=== PATIENT | male | born 1965 | race Caucasian/White ===

== ENCOUNTER 2017-08-30 17:27 | Emergency (ER) | payer BC ==
--- NOTE | 2017-08-30 18:03 | ED ---
Recheck HPI - General Chief Complaint: Recheck/Abnormal Lab/Rx Stated Complaint: Hypertensive Time Seen by Provider: 08/30/17 17:48 Source: patient Mode of arrival: ambulatory Limitations: no limitations - History of Present Illness Initial Comments: Patient presents or high blood pressure. Patient states blood pressure was 180 systolic when he decided to check it while he was at [facility]. Patient states he was asymptomatic with since he was there he decided to check it. Patient states symptoms elevated he took 2 extra doses of his Cozaar 100 mg. Patient only takes Cozaar 100 mg, a diuretic pill, and a third pill he doesn't remember in the morning for blood pressure. Patient is currently asymptomatic, states she is just concerned that his blood pressure was high. Patient denies chest pain, shortness breath, numbness, weakness, confusion, speech problems, vision changes. Patient does admit to drinking regularly and history of elevated liver enzymes, patient states he'll drink a few beers every night to help him sleep. - Related Data Home Medications Medication Instructions Recorded Confirmed Hydrochlorothiazide(Unknown) 1 tab PO DAILY 08/30/17 08/30/17 Losartan Potassium [Cozaar] 100 mg PO DAILY 08/30/17 08/30/17 Unknown Bp Med 08/30/17 Allergies Allergy/AdvReac Type Severity Reaction Status Date / Time No Known Allergies Allergy Verified 08/30/17 17:49 Review of Systems ROS Statement: Those systems with pertinent positive or pertinent negative responses have been documented in the HPI. ROS Other: All systems not noted in ROS Statement are negative. Constitutional: Denies: fever, chills, weakness Eyes: Denies: vision change ENT: Denies: ear pain, congestion Respiratory: Denies: cough, dyspnea Cardiovascular: Denies: chest pain, palpitations, dyspnea on exertion, syncope Endocrine: Denies: fatigue Gastrointestinal: Denies: abdominal pain, nausea, vomiting Genitourinary: Denies: frequency, hematuria Musculoskeletal: Denies: back pain Skin: Denies: rash, change in color Neurological: Denies: headache, weakness, numbness, paresthesias, confusion Past Medical History Past Medical History: Hypertension History of Any Multi-Drug Resistant Organisms: None Reported Past Surgical History: Orthopedic Surgery Smoking Status: Never smoker Past Alcohol Use History: Daily Past Drug Use History: None Reported General Exam - General Exam Comments Initial Comments: Sitting up in chair in room. No acute distress. Conversing normally. Calm, pleasant, smiling, making jokes. Well groomed, well dressed. Limitations: no limitations General appearance: alert, in no apparent distress Head exam: Present: atraumatic, normocephalic Eye exam: Present: normal appearance, PERRL, EOMI. Absent: scleral icterus, conjunctival injection (Pupils equal and reactive bilaterally. Eye movements intact bilaterally.) ENT exam: Present: mucous membranes moist Neck exam: Present: normal inspection Respiratory exam: Present: normal lung sounds bilaterally. Absent: respiratory distress, wheezes, rales Cardiovascular Exam: Present: regular rate, normal rhythm, normal heart sounds. Absent: irregular rhythm, systolic murmur, diastolic murmur GI/Abdominal exam: Present: soft. Absent: distended, tenderness, guarding, rebound, rigid Extremities exam: Present: other (No gross deformities. Full range of motion all extremities.) Neurological exam: Present: alert, oriented X3, CN II-XII intact, normal gait, other (Cranial nerves II through XII intact. Speech clear. Comprehension intact. Muscle strength 5 out of 5 in all extremities. Pronator drift negative bilaterally. Finger to nose coordinated bilaterally. Sensation intact in all extremities). Absent: motor sensory deficit Psychiatric exam: Present: normal affect, normal mood Skin exam: Present: warm, dry, intact, normal color. Absent: rash, diaphoretic Course Vital Signs 08/30/17 17:32 Temperature 98.8 F Pulse Rate 102 H Respiratory 18 Rate Blood Pressure 163/83 O2 Sat by Pulse 99 Oximetry Medical Decision Making - Medical Decision Making BP 163/83 on arrival. Patient asymptomatic. No focal neuro deficits on exam. Assessment patient regarding symptoms. Given asymptomatic hypertension will not treat further at this time. Patient instructed not to take extra doses of blood pressure sure medication at home unless okayed by physician. Patient was educated on signs and symptoms of heart attack and stroke. Instructed to return to ER immediately if patient develops any symptoms. Instructed patient to follow up with primary care physician tomorrow for blood pressure reevaluation and possible dosing adjustment of blood pressure medications. Discuss alcohol cessation with patient. Agrees to talk with primary care physician regarding possible Librium taper, possible sleep aids, as patient has been using alcohol as a sleep aid. Patient educated on risks of long-term alcohol abuse. Patient both feel comfortable being discharged home at this time. They're very happy with her care. All questions answered. Disposition Clinical Impression: HTN (hypertension) Disposition: HOME SELF-CARE Condition: Good Instructions: Chronic Hypertension (ED) Additional Instructions: Return to ER immediately if symptoms arise including numbness, weakness, confusion, vision problems, headache, chest pain, shortness of breath. Follow- up with your primary care doctor tomorrow for blood pressure recheck. Referrals: None,Stated [Primary Care Provider] - 1-2 days
[2017-08-30 18:41] VITALS: BP 161/94; PULSE 84; RESP 17; TEMP 98.2
== END 2017-08-30 18:43 | disposition home or self-care (01) ==
LOC: EC 17:27
DX: I10 Essential (primary) hypertension (principal); Z79.899 Other long term (current) drug therapy
CPT/HCPCS: 99282

== ENCOUNTER → 2018-05-11 | Outpatient (CLI) | payer BC ==
--- NOTE | 2018-05-11 10:11 | CT ---
EXAMINATION TYPE: CT sinus wo con DATE OF EXAM: 05/11/2018 COMPARISON: NONE HISTORY: Chronic sinusitis per order. Headaches and facial pain for [address] DLP: 588 mGycm. Automated Exposure Control for Dose Reduction was Utilized. TECHNIQUE: CT scan of the sinuses is performed without contrast, axial images are obtained, coronal r eformatted images are also reviewed. FINDINGS: There is mild to moderate mucosal thickening involving inferior aspect of both maxillary si nuses. There is mild curvilinear mucosal thickening posterior left sphenoid sinus axial image 30. No suspicious opacification or air-fluid levels is seen. The ostiomeatal complex is patent bilaterally o n the coronal images. Nasal septum is noted deviated to left of midline. Visualized portion of mastoid air cells show no abnormal opacification. The globes are intact bilate rally. Visualized portion of brain parenchyma shows age-related atrophy. There is incidental left fr ontal 1.4 cm curvilinear skin base lesion presumed dermatologic and benign in etiology axial image 62 , correlate clinically. IMPRESSION: Chronic maxillary sinus disease. No acute sinusitis.
== END | disposition home or self-care (01) ==
LOC: RADCTMAIN 08:29
PROVIDERS: ATTEND Otolaryngology
DX: J32.0 Chronic maxillary sinusitis (principal)
CPT/HCPCS: 70486

== ENCOUNTER 2018-07-01 06:13 | Day surgery (SDC) | payer BC ==
[2018-06-28 16:19] VITALS: BMI 30.1
[~2018-07-01 06:13] MED LIST: DEXAMETHASONE SOD PHOSPHATE 4 MG/ML 1 ML VIAL IV ONE; FAMOTIDINE 20 MG/2 ML VIAL IV ONE; ONDANSETRON 4 MG/2 ML VIAL IVP ONE; ceFAZolin 1,000 MG in DEXTROSE/WATER 1 50ML.BAG IV ONE
[2018-07-01] MEDS ORDERED: LIDOCAINE 1% 20 ML VIAL (10MG/ML) FOR IV START INTRADERMA PRN (06:20)
[2018-07-01] MEDS ORDERED: DEXAMETHASONE SOD PHOSPHATE 10 MG/ML 1 ML VIAL IV ONE (06:20)
[2018-07-01] MEDS ORDERED: SCOPOLAMINE 1.5MG/72HR PATCH TRANSDERM ONE (06:20)
[2018-07-01] MEDS ORDERED: HYDROmorphone 0.5 MG/0.5 ML SYRINGE IVP PRN (06:20)
[2018-07-01] MEDS ORDERED: ONDANSETRON 4 MG/2 ML VIAL IVP ONE (06:20)
[2018-07-01] MEDS: OXYMETAZOLINE 0.05% NASL SPRAY 1 SPRAY BOTTLE NASAL ONE ×5 (06:39→06:59)
[2018-07-01] MEDS: LACTATED RINGERS 1,000 ML IV SCH ×2 (06:39→07:40)
[2018-07-01] MEDS ORDERED: MIDAZOLAM 2 MG/2 ML VIAL IVP ONE (07:01)
[2018-07-01] MEDS ORDERED: SUCCINYLCHOLINE CHLORIDE 100 MG/5 ML SYR IV ONE (07:42)
[2018-07-01] MEDS ORDERED: DEXAMETHASONE SOD PHOS (MDV) 100 MG/10 ML VIAL ONE (07:42)
[2018-07-01] MEDS ORDERED: PROPOFOL 10 MG/ML 20 ML VIAL IV ONE (07:42)
[2018-07-01] MEDS ORDERED: LIDOCAINE 1% INJ 10MG/ML (20 ML MDV) ONE (07:42)
[2018-07-01] MEDS ORDERED: ePHEDrine SULFATE/0.9% NACL/PF 50 MG/5 ML SYRINGE IV ONE (07:42)
[2018-07-01] MEDS ORDERED: MIDAZOLAM 2 MG/2 ML VIAL ONE (07:42)
[2018-07-01] MEDS ORDERED: fentaNYL (PF) 50 MCG/ML 2 ML AMP ONE (07:42)
[2018-07-01] MEDS ORDERED: BUPIVACAIN-EPI 0.5%-1:200,000 30 ML VIAL SQ ONE (07:46)
[2018-07-01] MEDS ORDERED: LIDOCAINE 1%-EPI 1:100,000 20 ML VIAL SQ ONE (07:46)
[2018-07-01] MEDS ORDERED: EPINEPHrine 1 MG/ML (MDV) 30 ML VIAL TOPICAL ONE (07:47)
[2018-07-01] MEDS ORDERED: BACITRACIN 500 UNIT/GM OINT 28.4 GM TUBE TOPICAL ONE (07:47)
[2018-07-01] MEDS ORDERED: FLUORESCEIN STRIPS 1 MG STRIP MISCELLANE ONE (07:47)
[2018-07-01 09:24] VITALS: TEMP 97.5
--- NOTE | 2018-07-01 09:35 | P.OP ---
Date of Procedure: 07/01/18 Preoperative Diagnosis: Chronic sinusitis Deviated nasal septum to the left severe Intranasal polyps Sinonasal polyps Bilateral hypertrophy of the inferior nasal turbinates with obstruction Postoperative Diagnosis: Same Procedure(s) Performed: Bilateral functional endoscopic sinus surgery Septoplasty Polypectomy Bilateral submucosal resection of the inferior turbinates with outfracturing compression Anesthesia: CHUCHO Surgeon: Evan Graham Estimated Blood Loss (ml): 10 Pathology: other (sinonasal) Condition: stable Disposition: PACU Indications for Procedure: This patient presented to the office with long-standing issues with chronic sinusitis. CAT scan evaluation shows chronic sinusitis of the maxillary ethmoid and sphenoid sinuses with intranasal polyposis severe deviated septum and large obstructive inferior turbinates. He's failed medical therapy with long-term antibiotic therapy cortisone nasal sprays etc. In light of the obstructive polyps deviated septum etc. we have decided to proceed forward with surgery. All risks, benefits, and alternative therapies were discussed. Consent was obtained and all questions were answered. Operative Findings: Patient had a severe left septal deviation with large obstructive inferior turbinates and intranasal polyps. There was diseased tissue and polypoid disease throughout the maxillary ethmoid and sphenoid sinuses. Description of Procedure: This patient was taken to the operative room and placed in the supine position. A general inhalation anesthetic was administered to the patient by the department of anesthesia with a functioning IV line in place. The patient was monitored throughout the entire case by the department of anesthesia. The eyes were taped shut for protection. The patient was placed in a slight reverse Trendelenburg position. The patient had previously utilize Afrin nasal spray preoperatively. The nose was evaluated and the septum lateral nasal wall and inferior turbinates were injected with lidocaine 1% with epinephrine 1 100,000 bilaterally. Approximately 10 minutes were allowed wait for full vasoconstrictive effects to take place. At this point a caudal incision was made over the caudal portion of the left septum down to the mucoperichondrium. A mucoperichondrial flap was elevated on the left side and dissection was carried with use of tunnels posteriorly. We then made a crossover incision through the cartilage to the contralateral side and for the mucoperichondrial flap development was performed to the extent of visualization on the contralateral side. After the cartilage was freed with use of several crosshatching incisions and removal of some redundant strips of septal cartilage, the septum was straightened and placed back in the midline. The septum was sutured fixated to the ovarian groove. Excellent straightening occurred and the septum was visibly straight. Incision was closed with a 40 rapid Vicryl. We utilized a running nonlocking fashion for closure of the incision. A quilting stitch was used to reapproximate the septal flaps with use of a 40 rapid Vicryl. We then entered the nose with a 0 and 30 Jacobsen beatrice endoscope. Previous to this we did inject the lateral nasal wall and middle turbinate and uncinate process with lidocaine 1% with epinephrine 1 100,000. Approximately 10 minutes were allowed wait for full vasoconstrictive effects to take place. Intranasal polyps were noted. They were noted bilaterally. The intranasal polyps were removed with use of a microdebrider. With use of a microdebrider and a pediatric backbiter, we took down the uncinate process bilaterally. We then opened the maxillary sinuses bilaterally. We utilized a microdebrider for this and entered the maxillary sinuses and removed diseased tissue and polypoid tissue. This was done bilaterally. After the maxillary sinuses were opened and the diseased tissue and polyps were removed we entered the ethmoid bulla and with use of a microdebrider and up-biting chad and Nellyley, we remove the anterior septations and remove diseased tissue from the anterior ethmoids with direct visualization. We then followed the fovea frontalis through the basal lamella and into the posterior ethmoid air cells and did a total ethmoidectomy with removal of polypoid material. Once the ethmoids cells were all taken down we then entered the sphenoid sinus medially and inferiorly underneath the inferior attachment of the superior turbinate. The sphenoid sinus was opened entered and diseased tissue and polyps were removed bilaterally. This was done with a microdebrider and Blakesley. To summarize, the septum was straightened, the maxillary ethmoid and sphenoid sinuses were opened and polypoid disease were removed from the sinuses. Intranasal polyps were also removed. Xerogel was inserted. Nasal pore was inserted and minimal bleeding was encountered. We reinspected the skull base there is no signs of any orbital penetration or signs of any intracranial penetration. The sugical site was reinspected after the nasal pore and xerogel was placed and no bleeding was seen. Attention was then paid to the inferior turbinates. The bilateral inferior turbinates were hypertrophic and obstructive. We entered the anterior portion of the inferior turbinates with use of a microdebrider. We remove bone and submucosal elements with use of a microdebrider bilaterally. The inferior turbinates underwent a submucosal resection with removal of submucosal tissue and bone. We obtained a much better and normal in size for breathing. The inferior turbinates were then outfractured and compressed with a Familink nasal elevator. Excellent airway was obtained and was symmetric bilaterally. No bleeding was encountered. Intranasal splints were inserted and fixated at the end of the case. We utilized Puga nasal splints. There will be removed and the patient returns to the office.
[2018-07-01 09:59] VITALS: RESP 16
[2018-07-01 10:56] VITALS: BP 139/68; PULSE 90
== END 2018-07-01 11:12 | disposition home or self-care (01) ==
LOC: OR 06:13
PROVIDERS: ATTEND Otolaryngology
DX: J32.9 Chronic sinusitis, unspecified (principal); J34.2 Deviated nasal septum; J33.9 Nasal polyp, unspecified; J33.8 Other polyp of sinus; J34.3 Hypertrophy of nasal turbinates; I10 Essential (primary) hypertension; Z79.899 Other long term (current) drug therapy
CPT/HCPCS: 88305; 88300; 30520; 30140; 31267; 31259; J0171; J2250; J1100 ×2; J2405; J2001; J3010; J0690; J0330; J2704

== ENCOUNTER 2022-05-07 15:25 | Emergency (ER) | payer BC ==
[2022-05-07 15:35] VITALS: PULSE 66; RESP 18; TEMP 98
[2022-05-07 16:57] LABS: Basophils % (A) 0 %; Eosinophils # (A) 0.1 k/uL (0-0.7); Eosinophils % (A) 1 %; HCT 40.3 % (39.0-53.0); HGB 14.5 gm/dL (13.0-17.5); Lymphocytes # (A) 0.3 k/uL (1.0-4.8); Lymphocytes % (A) 6 %; MCH 33.5 pg (25.0-35.0); MCV 93.2 fL (80.0-100.0); Monocytes # (A) 0.4 k/uL (0-1.0); Monocytes % (A) 7 %; Neutrophils # (A) 4.2 k/uL (1.3-7.7); Neutrophils % (A) 82 %; RBC 4.32 m/uL (4.30-5.90); RDW 11.8 % (11.5-15.5); WBC 5.2 k/uL (3.8-10.6)
[2022-05-07 17:07] LABS: Albumin 4.6 g/dL (3.5-5.0); Anion Gap 10 mmol/L; Carbon Dioxide 27 mmol/L (22-30); Chloride 90 mmol/L (98-107); Glucose 143 mg/dL (74-99); Potassium 4.5 mmol/L (3.5-5.1); Sodium 127 mmol/L (137-145); Total Protein 7.5 g/dL (6.3-8.2)
[2022-05-07 17:08] LABS: ALT 55 U/L (4-49); AST 60 U/L (17-59); African American GFR (CKD) >90 (>60 ml/min/1.73 sqM); Alkaline Phosphatase 87 U/L (38-126); Blood Urea Nitrogen 11 mg/dL (9-20); Calcium 9.1 mg/dL (8.4-10.2); Non-African American GFR(CKD) >90 (>60 ml/min/1.73 sqM); Total Bilirubin 0.7 mg/dL (0.2-1.3)
--- NOTE | 2022-05-07 17:18 | ED ---
Neuro HPI - General Chief Complaint: Neuro Symptoms/Deficit Stated Complaint: Seizures,PCP sent Time Seen by Provider: 05/07/22 15:35 Source: patient Mode of arrival: ambulatory Limitations: no limitations - History of Present Illness Is the patient presenting with stroke symptoms?: Yes Initial Comments: 56-year-old male past history of hypertension, daily alcohol use who presents emergency Department with concern that he is having seizures. Patient states that he has been having sinus pain. He was on Bactrim and began having side effects from this medication. Reports that he felt like he had influenza when he took it. He called his primary care doctor who switched him to Augmentin. Patient reports that once he started this medication he began having these episodic tremors with visual disturbance. States that they come on every 20 minutes only lasts for a few seconds. They're associated with hot and cold flashes. Patient remains alert during this episodes. is concerned that he is having seizures. She denies any unresponsiveness from him. No head trauma. No history of neurologic disturbance. Patient denies any headaches or fevers. No neck pain or stiffness. No speech difficulties. No history of seizures. No other alleviating, precipitating or modifying factors - Related Data Home Medications: Home Medications Medication Instructions Recorded Confirmed Losartan Potassium 100 mg PO DAILY 06/28/18 05/07/22 amLODIPine [Norvasc] 10 mg PO DAILY 06/28/18 05/07/22 hydroCHLOROthiazide 25 mg PO DAILY 06/28/18 05/07/22 Amoxic-Pot Clav 875-125Mg 1 tab PO BID 05/07/22 05/07/22 [Augmentin 875-125] Cetirizine HCl [Zyrtec] 10 mg PO DAILY 05/07/22 05/07/22 Meclizine [Antivert] 25 mg PO DAILY PRN 05/07/22 05/07/22 Meloxicam [Mobic] 15 mg PO DAILY 05/07/22 05/07/22 Metoprolol Succinate (ER) [Toprol 50 mg PO DAILY 05/07/22 05/07/22 Xl] Minocycline HCl [Minocin] 100 mg PO DAILY 05/07/22 05/07/22 Triamcinolone Acetonide [Nasacort] 1 spray EA NOSTRIL DAILY 05/07/22 05/07/22 Zolpidem [Ambien] 10 mg PO HS PRN 05/07/22 05/07/22 Allergies/Adverse Reactions: Allergies Allergy/AdvReac Type Severity Reaction Status Date / Time No Known Allergies Allergy Verified 05/07/22 16:39 Review of Systems ROS Statement: Those systems with pertinent positive or pertinent negative responses have been documented in the HPI. ROS Other: All systems not noted in ROS Statement are negative. General Exam Limitations: no limitations General appearance: alert, in no apparent distress Head exam: Present: atraumatic, normocephalic, normal inspection Eye exam: Present: normal appearance, PERRL, EOMI. Absent: scleral icterus, conjunctival injection, periorbital swelling ENT exam: Present: normal exam, mucous membranes moist Neck exam: Present: normal inspection. Absent: tenderness, meningismus, lymphadenopathy Respiratory exam: Present: normal lung sounds bilaterally. Absent: respiratory distress, wheezes, rales, rhonchi, stridor Cardiovascular Exam: Present: regular rate, normal rhythm, normal heart sounds. Absent: systolic murmur, diastolic murmur, rubs, gallop, clicks GI/Abdominal exam: Present: soft, normal bowel sounds. Absent: distended, tenderness, guarding, rebound, rigid Extremities exam: Present: normal inspection, full ROM, normal capillary refill. Absent: tenderness, pedal edema, joint swelling, calf tenderness Back exam: Present: normal inspection Neurological exam: Present: alert, oriented X3, CN II-XII intact Psychiatric exam: Present: normal affect, normal mood Skin exam: Present: warm, dry, intact, normal color. Absent: rash Stroke MDM - Lab Data Result diagrams: 05/07/22 16:48 05/07/22 16:48 Lab Results 05/07/22 05/07/22 Range/Units 16:48 16:48 WBC 5.2 (3.8-10.6) k/uL RBC 4.32 (4.30-5.90) m/uL Hgb 14.5 (13.0-17.5) gm/dL Hct 40.3 (39.0-53.0) % MCV 93.2 (80.0-100.0) fL MCH 33.5 (25.0-35.0) pg MCHC 36.0 (31.0-37.0) g/dL RDW 11.8 (11.5-15.5) % Plt Count 94 L (150-450) k/uL MPV 9.0 Neutrophils % 82 % Lymphocytes % 6 % Monocytes % 7 % Eosinophils % 1 % Basophils % 0 % Neutrophils # 4.2 (1.3-7.7) k/uL Lymphocytes # 0.3 L (1.0-4.8) k/uL Monocytes # 0.4 (0-1.0) k/uL Eosinophils # 0.1 (0-0.7) k/uL Basophils # 0.0 (0-0.2) k/uL Manual Slide Review Performed RBC Morphology Normal Sodium 127 L (137-145) mmol/L Potassium 4.5 (3.5-5.1) mmol/L Chloride 90 L (98-107) mmol/L Carbon Dioxide 27 (22-30) mmol/L Anion Gap 10 mmol/L BUN 11 (9-20) mg/dL Creatinine 0.78 (0.66-1.25) mg/dL Est GFR (CKD-EPI)AfAm >90 (>60 ml/min/1.73 sqM) Est GFR (CKD-EPI)NonAf >90 (>60 ml/min/1.73 sqM) Glucose 143 H (74-99) mg/dL Calcium 9.1 (8.4-10.2) mg/dL Total Bilirubin 0.7 (0.2-1.3) mg/dL AST 60 H (17-59) U/L ALT 55 H (4-49) U/L Alkaline Phosphatase 87 (38-126) U/L Total Protein 7.5 (6.3-8.2) g/dL Albumin 4.6 (3.5-5.0) g/dL - Medical Decision Making Arrival patient was placed into room 5. Potassium physical exam was performed. IV access established laboratory studies were conducted. Patient sent for CT of his head. Upon return results they are discussed the patient. He does have a low sodium of 127. He reports that he drinks 2 gallons of water a day as well as several beers. I did recommend admission for hyponatremia however the patient refused. He is instructed to cut down the amount of free water that he is drinking. Decreasing alcohol that he isn't taking. He needs to follow up with his primary care doctor for reevaluation of his hyponatremia. Also r ecommended neurology evaluation with MRI and EEG. Patient was agreeable to this. Instructed to follow up with her primary care doctor return for any new or worsening symptoms. Patient was agreeable and discharge home in stable condition 05/07/22 17:17 EKG demonstrates a sinus rhythm with rate of 67. ND interval 167. QRS 113. QTC of 402. Intraventricular conduction delay. No acute ST segment elevations or depressions Past Medical History Past Medical History: Hypertension Additional Past Medical History / Comment(s): SINUS PROBLEMS History of Any Multi-Drug Resistant Organisms: None Reported Past Surgical History: Orthopedic Surgery Additional Past Surgical History / Comment(s): ARTHROSCOPY SURGERY FLORENCIA KNEES. Past Anesthesia/Blood Transfusion Reactions: No Reported Reaction Past Psychological History: No Psychological Hx Reported Smoking Status: Never smoker Past Alcohol Use History: Daily Past Drug Use History: None Reported - Past Family History Mother Family Medical History: No Reported History Course Vital Signs 05/07/22 05/07/22 15:30 18:53 Temperature 98.0 F Pulse Rate 66 66 Respiratory 18 18 Rate Blood Pressure 152/80 126/73 O2 Sat by Pulse 100 99 Oximetry Disposition Clinical Impression: Hyponatremia Disposition: HOME SELF-CARE Condition: Stable Instructions (If sedation given, give patient instructions): Hyponatremia (ED) Additional Instructions: Please cut down on your alcohol and water intake. Eat more salty foods. Follow- up with your doctor to have repeat sodium levels performed in 1 week. They may also want to complete an EEG. Return to the emergency room for any new or worsening symptoms Is patient prescribed a controlled substance at d/c from ED?: No Referrals: Elier Mccormick MD [Primary Care Provider] - 1-2 days Time of Disposition: 18:46
--- NOTE | 2022-05-07 17:31 | XR ---
EXAMINATION TYPE: XR chest 2V DATE OF EXAM: 05/07/2022 5:03 PM COMPARISON: None TECHNIQUE: XR chest 2V Frontal and lateral views of the chest. CLINICAL INDICATION:Male, 56 years old with history of altered mental status; FINDINGS: Lungs/Pleura: There is no evidence of pleural effusion, focal consolidation, or pneumothorax. Pulmonary vascularity: Unremarkable. Heart/mediastinum: Cardiomediastinal silhouette is unremarkable. Musculoskeletal: No acute osseous pathology. IMPRESSION: No acute cardiopulmonary disease/process.
--- NOTE | 2022-05-07 17:34 | CT ---
EXAMINATION TYPE: CT brain wo con CT DLP: 1261.4 mGycm, Automated exposure control for dose reduction was used. DATE OF EXAM: 05/07/2022 5:24 PM COMPARISON: 05/11/2018. CLINICAL INDICATION:Male, 56 years old with history of acute neurologic disturbance, Acute neurologic al disturbance TECHNIQUE: Brain: Axial CT images of the brain were obtained with coronal and sagittal reformats created and rev iewed. Contrast used: None. Oral contrast used: None. FINDINGS: Brain: Extra-axial spaces: No abnormal extra-axial fluid collections. Ventricular system: Within normal limits Cerebral parenchyma: No acute intraparenchymal hemorrhage or mass effect. The yi-white junction is well differentiated. Cerebellum: Unremarkable. Mass effect: No evidence of midline shift. Intracranial vasculature: Atherosclerotic calcifications of the intracranial vessels. Soft tissues: Normal. Calvarium/osseous structures: No depressed skull fracture. Paranasal sinuses and mastoid air cells: Mild scattered paranasal sinus disease. Visualized orbits: Orbital contents are intact. IMPRESSION: No acute intracranial process.
[2022-05-07 17:46] LABS: Platelet Count 94 k/uL (150-450)
[2022-05-07 17:47] LABS: RBC Morphology Normal
[2022-05-07 18:54] VITALS: BP 126/73
== END 2022-05-07 18:58 | disposition home or self-care (01) ==
LOC: EC 15:25
DX: E87.1 Hypo-osmolality and hyponatremia (principal); I10 Essential (primary) hypertension; Z79.811 Long term (current) use of aromatase inhibitors; Z79.891 Long term (current) use of opiate analgesic; Z79.899 Other long term (current) drug therapy
CPT/HCPCS: 36415; 70450; 71046; 80053; 85025; 93005; 99284

== ENCOUNTER → 2023-05-04 | Outpatient (CLI) | payer BC ==
--- NOTE | 2023-05-04 09:06 | CT ---
EXAMINATION TYPE: CT sinus wo con CT DLP: 575.3 mGycm, Automated exposure control for dose reduction was used. DATE OF EXAM: 05/04/2023 8:43 AM COMPARISON: CT sinus 05/11/2018. CLINICAL INDICATION:Male, 57 years old with history of J33.8 polyp of sinus; PHH, polyps of sinus CONTRAST: None. TECHNIQUE: Multiple thin axial images were obtained through the paranasal sinuses without the use of IV contrast. Additional coronal and sagittal reformatted images were submitted for evaluation. FINDINGS: Dental amalgam increased streak artifact which was evaluation. Frontal sinuses: Normally developed and aerated. Frontal Recess: Clear Maxillary Sinuses: Normally developed. Posterior changes of the bilateral ostiomeatal complexes. Mode rate mucosal thickening bilaterally. Ethmoid sinuses: Normally developed. Mild mucosal thickening bilaterally. Ethmoidal notch: Protected and abutting the lateral lamina. Sphenoid sinuses: Normally developed with minimal bilateral mucosal thickening. There is sellar sphen oid sinus pneumatization without evidence of dehiscence. No dehiscence of carotid canal. No evidence of optic nerve dehiscence within the sphenoid sinus. Sphenoethmoidal recesses: Clear. Nasal septum: Mildly deviated to the left.. Nasal Turbinates: Within normal limits. Mastoid air cells & middle ears: The air cells are clear. The middle ears are grossly unremarkable. Modified Soft tissues & Brain: Partially seen without gross abnormality. Globes are intact. Other: Cribriform plate demonstrates symmetric Keros classification type 2 cribriform plate. No evidence of bony dehiscence of skull base. Lamina papyracea is intact without evidence of remote orbital fracture or orbital prolapse into the e thmoid sinus. Few dermal skin calcifications noted. Similar left frontal 1.4 cm curvilinear skin-base d lesion presumed dermatologic and benign in etiology. IMPRESSION: Postsurgical changes of the bilateral ostiomeatal complexes with chronic paranasal sinus disease most pronounced in the maxillary sinuses bilaterally.
== END | disposition home or self-care (01) ==
LOC: RADCTMAIN 08:12
PROVIDERS: ATTEND Student in an Organized Health Care Education/Training Program
DX: J33.8 Other polyp of sinus (principal); J34.89 Other specified disorders of nose and nasal sinuses; Z98.890 Other specified postprocedural states
CPT/HCPCS: 70486